=== PATIENT | male | born 1945 | race African-American/Black ===

== ENCOUNTER 2019-02-18 22:40 | Emergency (ER) | payer OTHER, MEDICARE ==
[2019-02-18] MEDS ORDERED: MORPHINE SULFATE IR 15 MG TABLET PO ONE (23:58)
[2019-02-18] MEDS ORDERED: ACETAMINOPHEN 325 MG TABLET PO ONE (23:58)
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
[2019-02-19 02:16] VITALS: BP 128/76
== END 2019-02-19 02:16 | disposition home or self-care (01) ==
LOC: ER 22:40
DX: S09.90XA Unspecified injury of head, initial encounter (principal); M54.5 Low back pain; M54.6 Pain in thoracic spine; V89.2XXA Person injured in unspecified motor-vehicle accident, traffic, initial encounter
CPT/HCPCS: 70450; 72125; 99284

== ENCOUNTER → 2019-06-13 | Outpatient (CLI) | payer MEDICARE ==
--- NOTE | 2019-06-13 13:02 | RADIOLOGY REPORT (SQ) ---
EXAM DESCRIPTION: KNEE LEFT 4 VIEWS COMPLETED DATE/TIME: 06/13/2019 11:28 am REASON FOR STUDY: UNILATERAL PRIMARY OSTEOARTHRITIS, LEFT KNEE M17.12 UNILATERAL PRIMARY OSTEOARTHR ITIS, LEFT KNEE COMPARISON: None. EXAM PARAMETERS: NUMBER OF VIEWS: Four views. TECHNIQUE: AP, lateral and oblique radiographic images acquired of the left knee. LIMITATIONS: None. FINDINGS: MINERALIZATION: Normal. BONES: No acute fracture or dislocation. No worrisome bone lesions. JOINTS: No effusion. SOFT TISSUES: No significant soft tissue swelling. Moderate meniscal calcification- chondrocalcinosi s. No radiopaque foreign body. OTHER: No other significant finding. IMPRESSION: NO FRACTURE. TECHNICAL DOCUMENTATION: JOB ID: [id number] [place]-72 2010 [employer]- All Rights Reserved Reading location - IP/workstation name: [employer]
== END ==
LOC: OD 11:16
PROVIDERS: ATTEND Internal Medicine
DX: M17.12 Unilateral primary osteoarthritis, left knee (principal)

== ENCOUNTER 2020-07-23 02:29 | Inpatient (IN) | payer MEDICARE, OTHER ==
[2020-07-23] MEDS ORDERED: NORMAL SALINE IV ONE (02:45)
[2020-07-23 03:12] LABS: ALBUMIN 4.2 g/dL (3.5-5.0); ALKALINE PHOSPHATASE 43 U/L (38-126); ASPARTATE AMINO TRANSFERASE 60 U/L (17-59); BILIRUBIN,DIRECT 0.5 mg/dL (0.0-0.4); BILIRUBIN,TOTAL 1.1 mg/dL (0.2-1.3); BLOOD UREA NITROGEN 54 mg/dL (7-20); CALCIUM 9.2 mg/dL (8.4-10.2); GLUCOSE 174 mg/dL (75-110); POTASSIUM 4.1 mmol/L (3.6-5.0); TOTAL PROTEIN 7.7 g/dL (6.3-8.2)
[2020-07-23 03:17] LABS: CARBON DIOXIDE 19 mmol/L (22-30); CHLORIDE 102 mmol/L (98-107)
--- NOTE | 2020-07-23 03:18 | RADIOLOGY REPORT (SQ) ---
CHEST X-RAY 1 VIEW on 07/23/2020 at 2:50 AM CLINICAL INDICATION: Weakness COMPARISON: None FINDINGS: The lungs are clear. Cardiac, hilar and mediastinal contours are within normal limits. Pulmonary vascularity is within normal limits. Degenerative changes are noted in the spine. IMPRESSION: No acute disease.
[2020-07-23 03:25] LABS: ANION GAP 20 (5-19)
[2020-07-23 03:27] LABS: HEMATOCRIT 50.2 % (37.9-51.0); HEMOGLOBIN 17.1 g/dL (13.5-17.0); MEAN CORPUSCULAR HEMOGLOBIN 32.1 pg (27.0-33.4); MEAN CORPUSCULAR HGB CONC 34.1 g/dL (32.0-36.0); MEAN CORPUSCULAR VOLUME 94 fl (80-97); PLATELET COUNT 149 10^3/uL (150-450); RED BLOOD COUNT 5.34 10^6/uL (4.35-5.55); RED CELL DISTRIBUTION WIDTH 13.5 % (11.5-14.0); WHITE BLOOD COUNT 11.4 10^3/uL (4.0-10.5)
[2020-07-23] MEDS ORDERED: PIPERACILLIN/TAZOBACTAM 4.5 GM VIAL IV ONE (03:32)
--- NOTE | 2020-07-23 03:39 | ER Document Report ---
ED General - General Chief Complaint: General Weakness Stated Complaint: SEPTIC Time Seen by Provider: 07/23/20 02:56 Primary Care Provider: MARTHA BARFIELD MD [Primary Care Provider] - Follow up as needed TRAVEL OUTSIDE OF THE [place] IN LAST 30 DAYS: No - HPI Context: This is a 75-year-old male with history of hypertension who presents via EMS to the ED for evaluation of weakness and shortness of breath. Patient states that he has had generalized weakness and some shortness of breath for approximately 1 week. Patient denies chest pain or abdominal pain. Patient called EMS tonight because he was feeling worse. Upon EMS arrival, patient's blood pressure was found to be 80/60 with a pulse of 120 respirations of 16 and a blood glucose level of 256 the patient had a 18-gauge peripheral IV placed in his right forearm and was given a liter of lactated Ringer's in route EMS lactic acid level was read as 5.6. Patient states he used to be a smoker but has not smoked in many years. Patient denies history of Covid infection, loss of sense of taste or smell, known contact with Covid positive persons, known contact with persons under investigation for Covid. Patient denies nausea, and vomiting, diarrhea, headache, slurred speech. Patient does admit that he has felt so weak he has had difficulty standing up and ambulating. Patient denies actual pain but states the weakness and shortness of breath he is having is severe. Patient is able to say it is "very bad" but is not able to quantify it on a scale of 0- 5. Patient states exertion makes his symptoms worse and denies any alleviating factors. Associated symptoms: Other - See HPI Exacerbated by: Other - See HPI Relieved by: Other - See HPI - Related Data Allergies/Adverse Reactions: No Known Allergies Allergy (Unverified 02/19/19 00:42) Past Medical History - General Information source: Patient - Social History Smoking Status: Former Smoker Family History: Reviewed & Not Pertinent - Past Medical History Cardiac Medical History: Reports: Hx Hypertension Renal/ Medical History: Denies: Hx Peritoneal Dialysis Review of Systems - Review of Systems Constitutional: Weakness EENT: No symptoms reported Cardiovascular: No symptoms reported Respiratory: Short of breath Gastrointestinal: No symptoms reported Genitourinary: No symptoms reported Male Genitourinary: No symptoms reported Musculoskeletal: No symptoms reported Skin: No symptoms reported Hematologic/Lymphatic: No symptoms reported Neurological/Psychological: No symptoms reported -: Yes All other systems reviewed and negative Physical Exam - Vital signs Vitals: Resp BP Pulse Ox 26 H 126/98 H 94 07/23/20 02:33 07/23/20 02:33 07/23/20 02:33 - Notes Notes: CONSTITUTIONAL [Vital signs reviewed, Patient appears comfortable, Alert and oriented X 3, Normal stature.] HEAD [Atraumatic, Normocephalic.] EYES [Eyes are normal to inspection, No discharge from eyes, Extraocular muscles intact, Sclera are normal, Conjunctiva are normal.] NECK [Normal ROM, No jugular venous distention, No meningeal signs, no carotid bruit.] RESPIRATORY CHEST [Chest is nontender, Breath sounds normal, No respiratory distress.] CARDIOVASCULAR [Tachycardia, No murmurs, Normal S1 S2, No rub, No gallop.] ABDOMEN [Abdomen is nontender, No pulsatile masses, No other masses, Bowel sounds normal, No distension, No peritoneal signs, No hernias.] BACK [There is no CVA Tenderness, There is no tenderness to palpation, Normal inspection.] UPPER EXTREMITY [Inspection normal, No cyanosis, No clubbing, No edema, 2+ radial pulses.] LOWER EXTREMITY [Inspection normal, No cyanosis, No clubbing, No edema, No calf tenderness, 2+ femoral pulses.] NEURO [No focal motor deficits, No focal sensory deficits, Speech normal.] SKIN [Skin is warm, Skin is dry, Skin is normal color.] PSYCHIATRIC [Normal affect. ] Course - Vital Signs Vital signs: Temp Pulse Resp BP Pulse Ox 99.1 F 100 21 H 108/83 97 07/23/20 02:57 07/23/20 02:45 07/23/20 05:01 07/23/20 05:01 07/23/20 05:01 - Laboratory Result Diagrams: 07/23/20 02:34 07/23/20 02:34 Laboratory results interpreted by me: 07/23/20 07/23/20 07/23/20 02:34 02:34 02:34 WBC 11.4 H Hgb 17.1 H Plt Count 149 L Seg Neuts % (Manual) 86 H Band Neutrophils % 1 L Lymphocytes % (Manual) 1 L Abs Neuts (Manual) 9.9 H Abs Lymphs (Manual) 0.1 L Carbon Dioxide 19 L Anion Gap 20 H BUN 54 H Creatinine 3.83 H Est GFR ( Amer) 19 L Est GFR (MDRD) Non-Af 15 L Glucose 174 H Lactic Acid 5.7 H Magnesium Direct Bilirubin 0.5 H AST 60 H Urine Protein Urine Blood 07/23/20 07/23/20 02:34 03:36 WBC Hgb Plt Count Seg Neuts % (Manual) Band Neutrophils % Lymphocytes % (Manual) Abs Neuts (Manual) Abs Lymphs (Manual) Carbon Dioxide Anion Gap BUN Creatinine Est GFR ( Amer) Est GFR (MDRD) Non-Af Glucose Lactic Acid Magnesium 2.5 H Direct Bilirubin AST Urine Protein 100 H Urine Blood LARGE H - EKG Interpretation by Me Additional EKG results interpreted by me: 07/23/20 03:42 EKG obtained on 07/23/2020 at 0242 hrs. was interpreted by this MD. findings: Patient has a irregularly irregular tachycardia with a rate of 112, variable block, normal axis, IA interval cannot be determined, PVCs are present, QRS complex appears narrow, QTC is 481, there are no obvious patterns of ST segment elevation or depression present to suggest acute myocardial ischemia or infarction. There is no prior EKG currently available for comparison. Impression: Atrial flutter with NSSTS - Consults Dr. Morse Time consulted: 05:00 - Dr. Morse agreed to admit pt Reason for consultation: 07/23/20 05:09 new onset a flutter, hypotension, dyspnea, renal insufficiency, lactic acidosis Consulted provider: will see as inpatient Critical Care Note - Critical Care Note Total time excluding time spent on procedures (mins): 120 - new onset a flutter, hypotension, dyspnea, renal insufficiency, lactic acidosis Discharge - Discharge Clinical Impression: New onset atrial flutter, Lactic acidosis, Renal insufficiency Condition: Stable Disposition: ADMITTED INPATIENT Admitting Provider: Lito (Hospitalist) Unit Admitted: IMCU Referrals: MARTHA BARFIELD MD [Primary Care Provider] - Follow up as needed
[2020-07-23 03:47] LABS: ABSOLUTE LYMPHOCYTES# (MANUAL) 0.1 10^3/uL (0.5-4.7); ABSOLUTE MONOCYTES # (MANUAL) 1.4 10^3/uL (0.1-1.4); BAND NEUTROPHILS % (MANUAL) 1 % (3-5); BASOPHILS % (MANUAL) 0 % (0-2); EOSINOPHILS % (MANUAL) 0 % (0-6); LYMPHOCYTES % (MANUAL) 1 % (13-45); MONOCYTES % (MANUAL) 12 % (3-13); SEGMENTED NEUTROPHILS % (MAN) 86 % (42-78); TOTAL CELLS COUNTED 100
[2020-07-23 03:49] LABS: PLATELET COMMENT ADEQUATE; POIKILOCYTOSIS SLIGHT; TEAR DROP CELLS SLIGHT
[2020-07-23 03:50] LABS: INTERNATIONAL RATION (INR) 1.05; PROTHROMBIN TIME 13.9 SEC (11.4-15.4)
[2020-07-23 03:55] LABS: APPEARANCE,URINE CLOUDY; BILIRUBIN,URINE NEGATIVE (NEGATIVE); COLOR,URINE AMBER; GLUCOSE, URINE NEGATIVE (NEGATIVE); KETONES,URINE NEGATIVE (NEGATIVE); LEUKOCYTE ESTERASE,URINE NEGATIVE (NEGATIVE); NITRITE,URINE NEGATIVE (NEGATIVE); PROTEIN,URINE 100 mg/dL (NEGATIVE); UROBILINOGEN,URINE NEGATIVE mg/dL (<2.0)
[2020-07-23 04:09] LABS: VENOUS BLOOD BASE EXCESS -3.8 mmol/L; VENOUS BLOOD HCO3 21.8 mmol/L (20-32); VENOUS BLOOD PCO2 41.8 mmHg (35-63); VENOUS BLOOD PH 7.34 (7.30-7.42)
[2020-07-23] MEDS ORDERED: HEPARIN SOD (PORCINE) 1,000 UNIT/ML 10 ML VIAL IV ONE (05:05)
[2020-07-23] MEDS ORDERED: HEPARIN SODIUM,PORCINE/D5W 25,000 UNIT/250 ML RTUINJ IV PRN (05:05)
[2020-07-23] MEDS ORDERED: DEXAMETHASONE SOD PHOS INJ 10 MG/1 ML VIAL IV ONE (05:05)
[2020-07-23] MEDS ORDERED: RINGERS SOLUTION,LACTATED 1,000 ML IV PRN (05:32)
[2020-07-23] MEDS ORDERED: MAGNESIUM HYDROXIDE SUSP 30 ML UDCUP PO PRN (05:32)
[2020-07-23] MEDS ORDERED: LEVALBUTEROL HCL NEB 0.63 MG/3 ML AMPUL NEB PRN (05:32)
[2020-07-23] MEDS ORDERED: MAG HYDROX/AL HYDROX/SIMETH SUSP 30 ML UDCUP PO PRN (05:32)
[2020-07-23] MEDS ORDERED: PROMETHAZINE HCL INJ 25 MG/1 ML VIAL IV PRN ×2 (05:32→14:30)
[2020-07-23 05:33] LABS: FREE T3 2.85 pg/mL (2.77-5.27); FREE T4 (FREE THYROXINE) 1.25 ng/dL (0.78-2.19)
[2020-07-23] MEDS ORDERED: GLUCAGON,HUMAN RECOMB 1 MG INJ IM PRN (05:39)
[2020-07-23] MEDS ORDERED: DEXTROSE 40% GEL 15 GM TUBE PO PRN ×2 (05:39)
[2020-07-23] MEDS ORDERED: DEXTROSE 50%-WATER 25 GM/50 ML DISP.SYRIN IV PRN ×2 (05:39)
--- NOTE | 2020-07-23 05:48 | PDOC H&P ---
History of Present Illness Admission Date/PCP: 07/23/2020 05:04 MARTHA BARFIELD Patient complains of: Dyspnea History of Present Illness: TAMIA HUI is a 75 year old male presented emergency room with a 1-week history of dyspnea. 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 He admits progressively worsening dyspnea over the last week accompanied by progressively worsening generalized weakness and worsened by exertion. He denies other associated or accompanying signs and symptoms. He denies prior similar episodes. He has not identified any additional aggravating or ameliorating factors for his dyspnea by the evening of 07/22/2020 his dyspnea had become severe and he called EMS to bring him to the hospital. In the emergency room he was found to be tachypneic, tachycardic, hypoxic on room air and was found to have a mild leukocytosis with a lactic acid of 5.7. An EKG showed atrial fibrillation/flutter and a chest x-ray is negative for acute disease. His creatinine was noted to be 3.83 precluding a CTA evaluation of the chest. He was empirically started on IV antibiotic therapy with azithromycin and Rocephin in the emergency room. He was given Decadron 10 mg IV x1 in the emergency room. He was continued on nasal cannula supplemental oxygen 2 L/min and was subsequently admitted to the hospital for further evaluation and treatment. COVID-19 testing was performed. Blood cultures are pending. Past Medical History Cardiac Medical History: Reports: Hypertension Denies: Atrial Fibrillation, Coronary Artery Disease, Myocardial Infarction, Hyperlipidema Pulmonary Medical History: Denies: Asthma, Chronic Obstructive Pulmonary Disease (COPD) EENT Medical History: Denies: Cataracts, Ears - Hearing aids Neurological Medical History: Denies: Hemorrhagic CVA, Ischemic CVA, Seizures Endocrine Medical History: Reports: Obesity Denies: Diabetes Mellitus Type 1, Diabetes Mellitus Type 2, Hyperthyroidism, Hypothyroidism Renal/ Medical History: Reports: Chronic Kidney Disease Denies: Nephrolithiasis Malignancy Medical History: Reports: None GI Medical History: Denies: Cirrhosis, Hepatitis, Peptic Ulcer Disease Musculoskeltal Medical History: Reports: Arthritis Denies: Gout Skin Medical History: Denies: Eczema, Psoriasis Psychiatric Medical History: Denies: Alcohol Dependency, Substance Abuse, Tobacco Dependency Traumatic Medical History: Reports: None Hematology: Denies: Anemia, Bleeding Tendencies Infectious Medical History: Reports: None Past Surgical History Past Surgical History: Reports: None Social History Information Source: Patient Lives with: Family Smoking Status: Former Smoker Electronic Cigarette use?: No Frequency of Alcohol Use: None Hx Recreational Drug Use: No Drugs: None Hx Prescription Drug Abuse: No - Advance Directive Resuscitation Status: Full Code Surrogate healthcare decision maker:: Patric Hui Family History Family History: denies: CAD, DM, Malignancy Parental Family History Reviewed: Yes Children Family History Reviewed: No Sibling(s) Family History Reviewed.: Yes Medication/Allergy Allergies/Adverse Reactions: No Known Allergies Allergy (Unverified 02/19/19 00:42) Review of Systems Constitutional: PRESENT: as per HPI, weakness. ABSENT: chills, fever(s) Eyes: ABSENT: visual disturbances, other - Eye pain Ears: ABSENT: hearing changes, other - Ear pain Nose, Mouth, and Throat: ABSENT: headache(s), sore throat Cardiovascular: PRESENT: as per HPI, dyspnea on exertion. ABSENT: chest pain, palpitations Respiratory: PRESENT: as per HPI, dyspnea. ABSENT: cough Gastrointestinal: ABSENT: abdominal pain, diarrhea, nausea, vomiting Genitourinary: ABSENT: dysuria, hematuria Musculoskeletal: ABSENT: back pain, joint swelling Integumentary: ABSENT: pruritus, rash Neurological: ABSENT: focal weakness, memory loss Psychiatric: ABSENT: anxiety, depression Endocrine: ABSENT: cold intolerance, heat intolerance Hematologic/Lymphatic: ABSENT: easy bleeding, easy bruising Allergic/Immunologic: ABSENT: seasonal rhinorrhea Physical Exam Vital Signs: Temp Pulse Resp BP Pulse Ox 99.1 F 100 21 H 121/69 96 07/23/20 02:57 07/23/20 02:45 07/23/20 04:31 07/23/20 04:31 07/23/20 04:31 Intake & Output 07/21/20 07/22/20 07/23/20 23:59 23:59 23:59 Weight 107.7 kg General appearance: PRESENT: no acute distress, cooperative, obese, other - On supplemental oxygen at time of my evaluation Head exam: PRESENT: atraumatic, normocephalic Eye exam: PRESENT: conjunctiva pink. ABSENT: conjunctival injection, scleral icterus Ear exam: PRESENT: normal external ear exam. ABSENT: bleeding, drainage Mouth exam: PRESENT: dry mucosa, neck supple Neck exam: ABSENT: thyromegaly, tracheal deviation Respiratory exam: PRESENT: symmetrical, tachypnea. ABSENT: rales, rhonchi Cardiovascular exam: PRESENT: irregular rhythm - Irregularly irregular rate and rhythm, tachycardia. ABSENT: clicks, gallop, rubs Pulses: PRESENT: normal radial pulses, normal dorsalis pedis pul Vascular exam: ABSENT: normal capillary refill - Capillary refill delayed greater than 3 seconds, pallor GI/Abdominal exam: PRESENT: normal bowel sounds, soft. ABSENT: tenderness Rectal exam: PRESENT: deferred Extremities exam: ABSENT: joint swelling, pedal edema Neurological exam: PRESENT: alert, oriented to person, oriented to place, oriented to time, CN II-XII grossly intact Psychiatric exam: PRESENT: appropriate affect, normal mood Skin exam: PRESENT: dry, intact, warm. ABSENT: jaundice, rash, urticaria Results Laboratory Results: 07/23/20 02:34 07/23/20 02:34 07/23/20 07/23/20 07/23/20 02:34 02:34 02:34 WBC 11.4 H RBC 5.34 Hgb 17.1 H Hct 50.2 MCV 94 MCH 32.1 MCHC 34.1 RDW 13.5 Plt Count 149 L Seg Neutrophils % Not Reportable VBG pH Cancelled VBG pCO2 Cancelled VBG HCO3 Cancelled VBG Base Excess Cancelled Sodium 140.5 Potassium 4.1 Chloride 102 Carbon Dioxide 19 L Anion Gap 20 H BUN 54 H Creatinine 3.83 H Est GFR ( Amer) 19 L Glucose 174 H Lactic Acid Calcium 9.2 Magnesium Total Bilirubin 1.1 AST 60 H Alkaline Phosphatase 43 Total Protein 7.7 Albumin 4.2 TSH Urine Color Urine Appearance Urine pH Ur Specific [place] Urine Protein Urine Glucose (UA) Urine Ketones Urine Blood Urine Nitrite Ur Leukocyte Esterase Urine WBC (Auto) Urine RBC (Auto) 07/23/20 07/23/20 07/23/20 02:34 02:34 02:34 WBC RBC Hgb Hct MCV MCH MCHC RDW Plt Count Seg Neutrophils % VBG pH VBG pCO2 VBG HCO3 VBG Base Excess Sodium Potassium Chloride Carbon Dioxide Anion Gap BUN Creatinine Est GFR ( Amer) Glucose Lactic Acid 5.7 H Calcium Magnesium 2.5 H Total Bilirubin AST Alkaline Phosphatase Total Protein Albumin TSH 1.00 Urine Color Urine Appearance Urine pH Ur Specific [place] Urine Protein Urine Glucose (UA) Urine Ketones Urine Blood Urine Nitrite Ur Leukocyte Esterase Urine WBC (Auto) Urine RBC (Auto) 07/23/20 07/23/20 03:36 03:51 WBC RBC Hgb Hct MCV MCH MCHC RDW Plt Count Seg Neutrophils % VBG pH 7.34 VBG pCO2 41.8 VBG HCO3 21.8 VBG Base Excess -3.8 Sodium Potassium Chloride Carbon Dioxide Anion Gap BUN Creatinine Est GFR ( Amer) Glucose Lactic Acid Calcium Magnesium Total Bilirubin AST Alkaline Phosphatase Total Protein Albumin TSH Urine Color SILVIA Urine Appearance CLOUDY Urine pH 5.0 Ur Specific [place] 1.020 Urine Protein 100 H Urine Glucose (UA) NEGATIVE Urine Ketones NEGATIVE Urine Blood LARGE H Urine Nitrite NEGATIVE Ur Leukocyte Esterase NEGATIVE Urine WBC (Auto) 9 Urine RBC (Auto) 77 07/23/20 02:34 Troponin I 0.047 Impressions: Chest X-Ray 07/23/20 02:46 IMPRESSION: No acute disease. Assessment and Plan - Diagnosis (1) Acute kidney injury superimposed on chronic kidney disease Is this a current diagnosis for this admission?: Yes (2) Atrial fibrillation with rapid ventricular response Is this a current diagnosis for this admission?: Yes (3) Person under investigation for COVID-19 Is this a current diagnosis for this admission?: Yes (4) Acute respiratory failure with hypoxia Is this a current diagnosis for this admission?: Yes (5) SIRS (systemic inflammatory response syndrome) Is this a current diagnosis for this admission?: Yes (6) Lactic acidosis Is this a current diagnosis for this admission?: Yes (7) Leukocytosis Qualifiers: Leukocytosis type: unspecified Qualified Code(s): D72.829 - Elevated white blood cell count, unspecified Is this a current diagnosis for this admission?: Yes (8) Hyperglycemia Is this a current diagnosis for this admission?: Yes - Plan Summary Summary: Patient will be admitted to the [facility] where he will receive routine supportive and symptomatic cares. He will receive IV fluids utilizing Ringer's lactate at 250 mL/h initially. He will be continued on IV antibiotic therapy with Rocephin 1 g IV daily and azithromycin 500 mg IV daily. He will be continued on Decadron 6 mg IV daily. He will be treated with a diltiazem bolus and infusion to control his atrial fibrillation rate. He will be continued on supplemental oxygen via nasal cannula as needed to maintain an adequate oxygen saturation. Serial CBCs and metabolic profiles will be obtained to assess efficacy of the rapy. Serial lactic acid levels will be obtained. COVID-19 testing and blood cultures are pending. Hemoglobin A1c and a thyroid profile will be obtained. A cardiology consultation will be obtained and a nephrology consultation will be obtained when nephrology services are again available. Patient will be placed on a cardiac, prerenal and diabetic restricted diet. Before meals and at bedtime Accu-Cheks will be performed with sliding scale insulin for hyperglycemia and a hypoglycemic protocol in place. Additional laboratory and/or radiographic evaluations will be obtained as needed. Patient will use morphine sulfate 2 to 4 mg IV every 2 hours as needed for pain and Ativan 1 mg IV every 4 hours as needed for anxiety or restlessness. - Time Time Spent with patient: Less than 15 minutes Medications reviewed and adjusted accordingly: Yes Anticipated Discharge Disposition: Home with Home Health Anticipated Discharge Timeframe: Undetermined - Inpatient Certification Based on my medical assessment, after consideration of the patient's comorbidi ties, presenting symptoms, or acuity I expect that the services needed warrant INPATIENT care.: Yes I certify that my determination is in accordance with my understanding of Vignesh reece's requirements for reasonable and necessary INPATIENT services [42 CFR 412.3e].: Yes Medical Necessity: Need For IV Fluids, Need For Continuous Telemetry Monitoring, Need for IV Antibiotics, Risk of Complication if Not Cared For in Hospital
[2020-07-23] MEDS: PANTOPRAZOLE SODIUM 40 MG TABLET.DR PO SCH (06:14)
--- NOTE | 2020-07-23 07:33 | EKG REPORT ---
SEVERITY:- ABNORMAL ECG - ATRIAL FIBRILLATION, V-RATE 68-146 VENTRICULAR PREMATURE COMPLEX INFERIOR INFARCT, AGE INDETERMINATE BORDERLINE PROLONGED QT INTERVAL : Confirmed by: Sonya Souza 23-Jul-2020 07:32:43
[2020-07-23] MEDS ORDERED: CEFTRIAXONE 1 GM/D5W RTU 1 GM/50 ML RTUPB IV SCH (08:00)
[2020-07-23] MEDS ORDERED: HEPARIN SOD (PORCINE) 1,000 UNIT/ML 10 ML VIAL IV PRN ×2 (08:06)
[2020-07-23 08:59] LABS: INTERNATIONAL RATION (INR) 1.21; PROTHROMBIN TIME 15.5 SEC (11.4-15.4)
[2020-07-23 09:01] LABS: ABSOLUTE LYMPHOCYTES (AUTO) 0.4 10^3/uL (0.5-4.7); ABSOLUTE MONOCYTES (AUTO) 0.4 10^3/uL (0.1-1.4); ABSOLUTE NEUT (AUTO) 7.7 10^3/uL (1.7-8.2); BASOPHILS % (AUTO) 0.4 % (0-2); HEMATOCRIT 44.7 % (37.9-51.0); HEMOGLOBIN 15.4 g/dL (13.5-17.0); LYMPHOCYTES % (AUTO) 5.3 % (13-45); MEAN CORPUSCULAR HEMOGLOBIN 31.9 pg (27.0-33.4); MEAN CORPUSCULAR HGB CONC 34.4 g/dL (32.0-36.0); MEAN CORPUSCULAR VOLUME 93 fl (80-97); MONOCYTES % (AUTO) 4.3 % (3-13); PARTIAL THROMBOPLASTIN TIME 81.9 SEC (23.5-35.8); PLATELET COUNT 143 10^3/uL (150-450); RED BLOOD COUNT 4.81 10^6/uL (4.35-5.55); RED CELL DISTRIBUTION WIDTH 13.2 % (11.5-14.0); TOTAL CELLS COUNTED % (AUTO) 100 %; WHITE BLOOD COUNT 8.6 10^3/uL (4.0-10.5)
[2020-07-23 09:31] LABS: CREATINE KINASE MB 16.8 ng/mL (<4.55)
[2020-07-23 09:36] LABS: D-DIMER 4.39 ug/mL (0.00-0.50)
[2020-07-23 09:46] LABS: TROPONIN I 0.073 ng/mL
[2020-07-23] MEDS: HEPARIN SODIUM,PORCINE/D5W 25,000 UNIT/250 ML RTUINJ IV PRN (10:57)
[2020-07-23] MEDS: ASPIRIN 81 MG TABLET, ENT COATED PO SCH (11:06)
[2020-07-23] MEDS: CHOLECALCIFEROL (D3) 1,000 UNIT (25 MCG) TABLET PO SCH (11:06)
[2020-07-23] MEDS: ZINC SULFATE 220 MG CAPSULE PO SCH (11:06)
[2020-07-23] MEDS: ASCORBIC ACID 500 MG TABLET PO SCH ×2 (11:06→17:24)
[2020-07-23] MEDS: DOCUSATE SODIUM 100 MG CAPSULE PO SCH ×2 (11:46→17:16)
[2020-07-23 15:21] LABS: CREATINE KINASE MB 13.9 ng/mL (<4.55); TROPONIN I 0.046 ng/mL
[2020-07-23] MEDS ORDERED: HYDROCODONE/ACETAMINOPHEN 5-325 MG TABLET PO PRN (17:27)
[2020-07-23] MEDS ORDERED: (PENDING PHARMACY ID) (Atenolol [Tenormin] 25 MG) PO SCH (18:00)
--- NOTE | 2020-07-23 20:50 | PDOC PROGRESS REPORT ---
Subjective Progress Note for:: 07/23/20 Subjective:: Patient was seen and examined at bedside. He is still on 2 L of nasal cannula saturating 95%. He reports an improvement as far as breathing status is concerned. He he was still very confused, unable to provide accurate date or even the correct year. Could not name the current [place] president. Reason For Visit: ATRIAL FIBRILLATION WITH RAPID VENTRICULAR RESPONS Physical Exam Vital Signs: Temp Pulse Resp BP Pulse Ox 97.6 F 89 18 122/70 99 07/23/20 19:28 07/23/20 19:28 07/23/20 19:28 07/23/20 19:28 07/23/20 19:28 Intake & Output 07/22/20 07/23/20 07/24/20 06:59 06:59 06:59 Intake Total 12 655 Output Total 0 200 Balance 12 455 Weight 103.6 kg General appearance: PRESENT: cooperative, other - moderate distress Head exam: PRESENT: atraumatic, normocephalic Eye exam: PRESENT: EOMI, PERRLA Mouth exam: PRESENT: moist Neck exam: PRESENT: full ROM Respiratory exam: PRESENT: crackles, rales, symmetrical. ABSENT: wheezes Cardiovascular exam: PRESENT: irregular rhythm, +S1, +S2 GI/Abdominal exam: PRESENT: normal bowel sounds, soft. ABSENT: rebound, tenderness Extremities exam: PRESENT: +2 edema. ABSENT: joint swelling Musculoskeletal exam: PRESENT: full ROM Neurological exam: PRESENT: altered - Confused about person and date and time Psychiatric exam: PRESENT: flat affect Skin exam: PRESENT: normal color Results Laboratory Results: 07/23/20 08:37 07/23/20 02:34 07/23/20 07/23/20 07/23/20 02:34 02:34 02:34 WBC 11.4 H RBC 5.34 Hgb 17.1 H Hct 50.2 MCV 94 MCH 32.1 MCHC 34.1 RDW 13.5 Plt Count 149 L Seg Neutrophils % Not Reportable VBG pH Cancelled VBG pCO2 Cancelled VBG HCO3 Cancelled VBG Base Excess Cancelled Sodium 140.5 Potassium 4.1 Chloride 102 Carbon Dioxide 19 L Anion Gap 20 H BUN 54 H Creatinine 3.83 H Est GFR ( Amer) 19 L Glucose 174 H Lactic Acid Calcium 9.2 Magnesium Ferritin Total Bilirubin 1.1 AST 60 H Alkaline Phosphatase 43 C-Reactive Protein Total Protein 7.7 Albumin 4.2 TSH Free T4 Free T3 pg/mL Urine Color Urine Appearance Urine pH Ur Specific [place] Urine Protein Urine Glucose (UA) Urine Ketones Urine Blood Urine Nitrite Ur Leukocyte Esterase Urine WBC (Auto) Urine RBC (Auto) 07/23/20 07/23/20 07/23/20 02:34 02:34 02:34 WBC RBC Hgb Hct MCV MCH MCHC RDW Plt Count Seg Neutrophils % VBG pH VBG pCO2 VBG HCO3 VBG Base Excess Sodium Potassium Chloride Carbon Dioxide Anion Gap BUN Creatinine Est GFR ( Amer) Glucose Lactic Acid 5.7 H Calcium Magnesium 2.5 H Ferritin Total Bilirubin AST Alkaline Phosphatase C-Reactive Protein Total Protein Albumin TSH 1.00 Free T4 1.25 Free T3 pg/mL 2.85 Urine Color Urine Appearance Urine pH Ur Specific [place] Urine Protein Urine Glucose (UA) Urine Ketones Urine Blood Urine Nitrite Ur Leukocyte Esterase Urine WBC (Auto) Urine RBC (Auto) 07/23/20 07/23/20 07/23/20 03:36 03:51 08:37 WBC RBC Hgb Hct MCV MCH MCHC RDW Plt Count Seg Neutrophils % VBG pH 7.34 VBG pCO2 41.8 VBG HCO3 21.8 VBG Base Excess -3.8 Sodium Potassium Chloride Carbon Dioxide Anion Gap BUN Creatinine Est GFR ( Amer) Glucose Lactic Acid 1.6 Calcium Magnesium Ferritin Total Bilirubin AST Alkaline Phosphatase C-Reactive Protein Total Protein Albumin TSH Free T4 Free T3 pg/mL Urine Color SILVIA Urine Appearance CLOUDY Urine pH 5.0 Ur Specific [place] 1.020 Urine Protein 100 H Urine Glucose (UA) NEGATIVE Urine Ketones NEGATIVE Urine Blood LARGE H Urine Nitrite NEGATIVE Ur Leukocyte Esterase NEGATIVE Urine WBC (Auto) 9 Urine RBC (Auto) 77 07/23/20 07/23/20 07/23/20 08:37 08:37 08:37 WBC 8.6 RBC 4.81 Hgb 15.4 Hct 44.7 MCV 93 MCH 31.9 MCHC 34.4 RDW 13.2 Plt Count 143 L Seg Neutrophils % 90.0 H VBG pH VBG pCO2 VBG HCO3 VBG Base Excess Sodium Potassium Chloride Carbon Dioxide Anion Gap BUN Creatinine Est GFR ( Amer) Glucose Lactic Acid Calcium Magnesium Ferritin 1300.00 H Total Bilirubin AST Alkaline Phosphatase C-Reactive Protein 61.7 H Total Protein Albumin TSH Free T4 Free T3 pg/mL Urine Color Urine Appearance Urine pH Ur Specific [place] Urine Protein Urine Glucose (UA) Urine Ketones Urine Blood Urine Nitrite Ur Leukocyte Esterase Urine WBC (Auto) Urine RBC (Auto) 07/23/20 07/23/20 12:20 16:45 WBC RBC Hgb Hct MCV MCH MCHC RDW Plt Count Seg Neutrophils % VBG pH VBG pCO2 VBG HCO3 VBG Base Excess Sodium Potassium Chloride Carbon Dioxide Anion Gap BUN Creatinine Est GFR ( Amer) Glucose Lactic Acid 1.5 1.6 Calcium Magnesium Ferritin Total Bilirubin AST Alkaline Phosphatase C-Reactive Protein Total Protein Albumin TSH Free T4 Free T3 pg/mL Urine Color Urine Appearance Urine pH Ur Specific [place] Urine Protein Urine Glucose (UA) Urine Ketones Urine Blood Urine Nitrite Ur Leukocyte Esterase Urine WBC (Auto) Urine RBC (Auto) 07/23/20 07/23/20 07/23/20 02:34 08:37 08:37 Creatine Kinase 2733 H CK-MB (CK-2) 16.80 H Troponin I 0.047 0.073 07/23/20 07/23/20 14:40 14:40 Creatine Kinase 2719 H CK-MB (CK-2) 13.90 H Troponin I 0.046 Impressions: Chest X-Ray 07/23/20 02:46 IMPRESSION: No acute disease. Assessment and Plan - Diagnosis (1) Acute respiratory failure with hypoxia Is this a current diagnosis for this admission?: Yes Plan: -Came in due to dyspnea 1 week duration -Lowest O2 sat 92% improved 2 L of nasal cannula - ddx CAP, COVID pneumonia -Chest x-ray normal -CT chest without contrast pending - VQ scan pending - continue O2 support - patient started on Heparin drip for possible PE and also for New onset a.fib - also started on abx for presumed pneumonia (2) Acute kidney injury superimposed on chronic kidney disease Is this a current diagnosis for this admission?: Yes Plan: - Crea 3.8 unknown baseline -Urine sodium, urine creatinine, urine ultrasound ordered for work-up of CHETAN -Continue IV hydration -denise placed strict I&O (3) Suspected COVID-19 virus infection Is this a current diagnosis for this admission?: Yes Plan: -Came in due to dyspnea 1 week duration and cough. No known Covid exposure -X-ray clear -Covid pending -CT chest pending -CRP elevated -Ferritin elevated -Patient on ceftriaxone and azithromycin -Dexamethasone 6 mg IV -Treatment C, vitamin D, zinc -Convalescent plasma and/or remdesivir once Covid is confirmed (4) Atrial fibrillation with rapid ventricular response Is this a current diagnosis for this admission?: Yes Plan: -New onset no prior history -EKG confirms A. fib -Chads vas score 3 points for age and hypertension -Started on heparin drip due to CHETAN -Echo TSH pending -Cardio following (5) Lactic acidosis Is this a current diagnosis for this admission?: Yes Plan: -Resolved currently 1.6 (6) Leukocytosis Qualifiers: Leukocytosis type: unspecified Qualified Code(s): D72.829 - Elevated white blood cell count, unspecified Is this a current diagnosis for this admission?: Yes Plan: WBC 11.4-8.6 improving Continue to monitor (7) Acute metabolic encephalopathy Is this a current diagnosis for this admission?: Yes Plan: -Likely secondary to low blood pressure and hypoxia Consider CT head if it does not improve (8) Elevated troponin Is this a current diagnosis for this admission?: Yes Plan: -Troponin 0.0 47 down to 0.0 37 -EKG atrial fibrillation -Likely type II demand ischemia -Cardio following - Time Time Spent with patient: 25-34 minutes Anticipated Discharge Disposition: Home, Self Care Anticipated Discharge Timeframe: to be determined
[2020-07-23 21:13] LABS: CREATINE KINASE MB 11.3 ng/mL (<4.55); TROPONIN I 0.037 ng/mL
--- NOTE | 2020-07-23 21:40 | XCELERA REPORT ---
[address] [address] Transthoracic Echocardiogram Report Name: TAMIA HUI Age: 75 yrs Gender: Male : 1945 Patient Status: Inpatient Patient Location: [address] [place] [address] Study Date: 07/23/2020 10:21 AM Height: 75 in Weight: 228 lb BSA: 2.3 m2 Procedure: A complete two-dimensional transthoracic echocardiogram was performed (2D, M-mode, spectral and color flow Doppler). The study was technically difficult with many images being suboptimal in quality. Images from the parasternal window were difficult to obtain and are suboptimal in quality. Reason For Study: new onset afib Previous Evaluation: No previous studies were available. Ordering Physician: MIRIAM YU Performed By: Ketan Solano Interpretation Summary Technically limited study. The left ventricle is grossly normal size. Left ventricular systolic function is normal. The Ejection Fraction estimate is 65-70%. LV diastolic function could not be adequately assessed due to atrial fibrilation. Regional wall motion abnormalities cannot be excluded due to limited visualization. Valvulare structures not well visualized therefore cannot comment on structural abnormalities. Trace TR. No prior studies for comparison. MMode/2D Measurements & Calculations RVDd: 3.3 cm LVIDd: 4.9 cm FS: 41.4 % Ao root diam: 3.0 cm IVSd: 1.3 cm LVIDs: 2.9 cm EDV(Teich): 115.1 ml Ao root area: 7.2 cm2 LVPWd: 0.88 cm ESV(Teich): 32.2 ml LA dimension: 3.8 cm EF(Teich): 72.1 % Doppler Measurements & Calculations MV E max naseem: MV P1/2t max naseem: Ao V2 max: LV V1 max P.7 cm/sec 63.9 cm/sec 117.6 cm/sec 1.8 mmHg MV P1/2t: 65.9 msec Ao max PG: LV V1 max: MVA(P1/2t): 3.3 cm2 5.5 mmHg 68.0 cm/sec MV dec slope: 283.9 cm/sec2 MV dec time: 0.27 sec PA V2 max: MV P1/2t-pr_phl: 68.6 cm/sec 65.9 msec PA max P.9 mmHg Left Ventricle The left ventricle is grossly normal size. Left ventricular systolic function is normal. The Ejection Fraction estimate is 65-70%. LV diastolic function could not be adequately assessed due to atrial fibrilation. Regional wall motion abnormalities cannot be excluded due to limited visualization. Right Ventricle The right ventricle is grossly normal size. The right ventricular systolic function is normal. Atria The right atrium is normal. The left atrial size is normal. The interatrial septum is difficult to see, but appears to be grossly normal. Mitral Valve The mitral valve is not well visualized. There is no mitral valve stenosis. There is no mitral regurgitation noted. Aortic Valve The aortic valve is not well visualized secondary to technical limitations. There is no aortic valve stenosis. No aortic regurgitation is present. Tricuspid Valve The tricuspid valve is not well visualized secondary to technical limitations. There is no tricuspid valve prolapse. There is no tricuspid stenosis. There is a trace or physiologic amount of tricuspid regurgitation. Pulmonic Valve The pulmonic valve is not well visualized. There is no pulmonic valvular stenosis. There is no pulmonic valvular regurgitation. Great Vessels The aortic root is normal size. The inferior vena cava appeared small and collapsed with respiration (RAP 0-5 mmHg). Effusions There is no pericardial effusion. There is no pleural effusion. : MIRIAM UY Antonio
[2020-07-23] MEDS: FAMOTIDINE 20 MG TABLET PO SCH (23:02)
--- NOTE | 2020-07-23 23:21 | RADIOLOGY REPORT (SQ) ---
CLINICAL INDICATION: hypoxemic resp failure. . TECHNIQUE: Noncontrast spiral axial CT imaging was obtained of the chest with multiplanar reconstructions. This exam was performed according to our departmental dose-optimization program, which includes automated exposure control, adjustment of the mA and/or kV according to patient size and/or use of iterative reconstruction techniques. COMPARISON: None. CORRELATION: Chest radiography earlier today. FINDINGS: The heart is enlarged. No pericardial effusion. No bulky mediastinal adenopathy. Thyroid is heterogeneous The lungs demonstrate chronic changes. Dependent atelectasis/scar. Motion artifact. No dense consolidation. No effusion. No pneumothorax. Mild interstitial changes both upper lobes dependently, unknown chronicity Visualized abdominal contents are unremarkable. Possible cortical loss left kidney, not well seen Visualized bones demonstrate osteoarthritis.. IMPRESSION: Imaging is degraded by patient motion, with resultant artifact. The best possible images were obtained. Chronic parenchymal lung disease. Dependent atelectasis/scar. No dense consolidation
[2020-07-23] MEDS: NORMAL SALINE 1000 ML 1,000 ML IV PRN (23:54)
[2020-07-24 05:18] LABS: HEMATOCRIT 42.4 % (37.9-51.0); HEMOGLOBIN 14.8 g/dL (13.5-17.0); MEAN CORPUSCULAR HEMOGLOBIN 32.3 pg (27.0-33.4); MEAN CORPUSCULAR VOLUME 92 fl (80-97); PLATELET COUNT 142 10^3/uL (150-450); RED BLOOD COUNT 4.59 10^6/uL (4.35-5.55); RED CELL DISTRIBUTION WIDTH 13.3 % (11.5-14.0); WHITE BLOOD COUNT 12.2 10^3/uL (4.0-10.5)
[2020-07-24] MEDS: PANTOPRAZOLE SODIUM 40 MG TABLET.DR PO SCH (05:30)
[2020-07-24 05:40] LABS: ANION GAP 11 (5-19); BLOOD UREA NITROGEN 52 mg/dL (7-20); CALCIUM 8.2 mg/dL (8.4-10.2); CARBON DIOXIDE 20 mmol/L (22-30); CHLORIDE 107 mmol/L (98-107); GLUCOSE 151 mg/dL (75-110); POTASSIUM 3.7 mmol/L (3.6-5.0)
[2020-07-24] MEDS ORDERED: CEFTRIAXONE 1 GM/D5W RTU 1 GM/50 ML RTUPB IV SCH (06:00)
--- NOTE | 2020-07-24 08:29 | RADIOLOGY REPORT (SQ) ---
EXAM DESCRIPTION: U/S RETROPERITON (RENAL/AORTA) IMAGES COMPLETED DATE/TIME: 07/24/2020 6:42 am REASON FOR STUDY: CHETAN COMPARISON: None. TECHNIQUE: Dynamic and static grayscale images acquired of the kidneys and bladder and recorded on P ACS. Additional selected color Doppler and spectral images recorded. LIMITATIONS: None. FINDINGS: RIGHT KIDNEY: Normal size. Normal echogenicity. No solid or suspicious masses. No hydronep hrosis. No calcifications. LEFT KIDNEY: Normal size. Normal echogenicity. No solid or suspicious masses. Hydronephrosis. No ca lcifications. BLADDER: No masses. OTHER FINDINGS: No other significant finding. IMPRESSION: HYDRONEPHROSIS OF THE LEFT KIDNEY. TECHNICAL DOCUMENTATION: JOB ID: [id number] [email or web address] Rights Reserved Reading location - IP/workstation name: [email or web address]
--- NOTE | 2020-07-24 09:37 | RADIOLOGY REPORT (SQ) ---
EXAM DESCRIPTION: NM LUNG PERFUSION SCAN IMAGES COMPLETED DATE/TIME: 07/24/2020 8:29 am REASON FOR STUDY: SOB COMPARISON: Chest x-ray and chest CT dated 07/23/2020. RADIONUCLIDE AND DOSE: 5.47. Millicuries TC-99m MAA The route of agent administration: Intravenous TECHNIQUE: Eight views of the lungs acquired following injection of MAA. LIMITATIONS: None. FINDINGS: PERFUSION: There is scattered small sub segmental perfusion defects throughout both lungs. These appear to correspond with parenchymal ground-glass opacities on recent chest CT. No mismatch ed perfusion defects. OTHER: No other significant finding. IMPRESSION: SMALL SUBSEGMENTAL MATCHED PERFUSION DEFECTS. LOW PROBABILITY OF PULMONARY EMBOLISM. TECHNICAL DOCUMENTATION: JOB ID: [id number] 2010 [employer]- All Rights Reserved Reading location - IP/workstation name: [email or web address]
[2020-07-24] MEDS: DOCUSATE SODIUM 100 MG CAPSULE PO SCH ×2 (09:56→18:08)
[2020-07-24] MEDS: AZITHROMYCIN 500 MG in DEXTROSE 5%-WATER 250 ML IV SCH (09:59)
[2020-07-24] MEDS: ASPIRIN 81 MG TABLET, ENT COATED PO SCH (10:04)
[2020-07-24] MEDS: ATENOLOL 50 MG TABLET PO SCH (10:04)
[2020-07-24] MEDS: CHOLECALCIFEROL (D3) 1,000 UNIT (25 MCG) TABLET PO SCH (10:05)
[2020-07-24] MEDS: ASCORBIC ACID 500 MG TABLET PO SCH ×2 (10:06→18:14)
[2020-07-24] MEDS: ZINC SULFATE 220 MG CAPSULE PO SCH (10:07)
[2020-07-24] MEDS: DEXAMETHASONE SOD PHOS INJ 10 MG/1 ML VIAL IV SCH (10:07)
--- NOTE | 2020-07-24 16:42 | PDOC PROGRESS REPORT ---
Subjective Progress Note for:: 07/24/20 Subjective:: Patient still having some SOB but denies any chest pain, chills. His VQ scan came back as low probability for PE. Still seems a little bit confused but able to engage in conversation. Reason For Visit: ATRIAL FIBRILLATION WITH RAPID VENTRICULAR RESPONS Physical Exam Vital Signs: Temp Pulse Resp BP Pulse Ox 98.9 F 70 18 121/76 100 07/24/20 10:04 07/24/20 14:00 07/24/20 10:04 07/24/20 10:04 07/24/20 10:04 Intake & Output 07/23/20 07/24/20 07/25/20 06:59 06:59 06:59 Intake Total 12 2435 Output Total 0 1050 Balance 12 1385 Weight 103.6 kg 107.4 kg General appearance: PRESENT: no acute distress, cooperative Neck exam: ABSENT: JVD Respiratory exam: PRESENT: symmetrical, unlabored. ABSENT: accessory muscle use, retraction, stridor, tachypnea, wheezes Cardiovascular exam: PRESENT: RRR, +S1, +S2. ABSENT: tachycardia GI/Abdominal exam: PRESENT: soft. ABSENT: rebound, rigid, tenderness Neurological exam: PRESENT: alert, awake Psychiatric exam: ABSENT: agitated, anxious Focused psych exam: ABSENT: pressured speech Skin exam: ABSENT: jaundice Results Laboratory Results: 07/24/20 04:24 07/24/20 04:24 07/23/20 07/24/20 07/24/20 16:45 04:24 04:24 WBC 12.2 H RBC 4.59 Hgb 14.8 Hct 42.4 MCV 92 MCH 32.3 MCHC 35.0 RDW 13.3 Plt Count 142 L Sodium 137.9 Potassium 3.7 Chloride 107 Carbon Dioxide 20 L Anion Gap 11 BUN 52 H Creatinine 2.60 H Est GFR ( Amer) 29 L Glucose 151 H Lactic Acid 1.6 Calcium 8.2 L Magnesium 2.4 H Blood Type Antibody Screen 07/24/20 08:54 WBC RBC Hgb Hct MCV MCH MCHC RDW Plt Count Sodium Potassium Chloride Carbon Dioxide Anion Gap BUN Creatinine Est GFR ( Amer) Glucose Lactic Acid Calcium Magnesium Blood Type O POSITIVE Antibody Screen NEGATIVE 07/23/20 07/23/20 07/23/20 02:34 08:37 08:37 Creatine Kinase 2733 H CK-MB (CK-2) 16.80 H Troponin I 0.047 0.073 NT-Pro-B Natriuret Pep 07/23/20 07/23/20 07/23/20 14:40 14:40 20:26 Creatine Kinase 2719 H 2404 H CK-MB (CK-2) 13.90 H Troponin I 0.046 NT-Pro-B Natriuret Pep 07/23/20 07/23/20 20:26 20:26 Creatine Kinase CK-MB (CK-2) 11.30 H Troponin I 0.037 NT-Pro-B Natriuret Pep 904 H Impressions: Chest CT 07/23/20 00:00 IMPRESSION: Imaging is degraded by patient motion, with resultant artifact. The best possible images were obtained. Chronic parenchymal lung disease. Dependent atelectasis/scar. No dense consolidation Lung Scan-VQ NM 07/23/20 00:00 IMPRESSION: SMALL SUBSEGMENTAL MATCHED PERFUSION DEFECTS. LOW PROBABILITY OF PULMONARY EMBOLISM. Chest X-Ray 07/23/20 02:46 IMPRESSION: No acute disease. Renal Ultrasound 07/24/20 00:00 IMPRESSION: HYDRONEPHROSIS OF THE LEFT KIDNEY. Assessment and Plan - Diagnosis (1) COVID-19 virus infection Is this a current diagnosis for this admission?: Yes Plan: Confirmed positive. Day 2 of azithromycin Day 2 of dexamethasone IV We will administer convalescent plasma today For now, I will hold off on remdesivir given patient's remarkably reduced renal function. Continue vitamin and zinc supplements Continue therapeutic anticoagulation given elevated D-dimer Monitor labs and D-dimer (2) Acute kidney injury superimposed on chronic kidney disease Is this a current diagnosis for this admission?: Yes Plan: - Crea 3.8 on presentation. No recent baseline for comparison but last measured creatinine was in 2016 and was 1.59. Continue IV fluids Creatinine down to 2.6 today. Renal ultrasound does show left hydronephrosis but no obstructing mass or stones - he will need urology evaluation more likely outpatient once his COVID-19 situation has been dealt with. Continue to monitor renal function (3) Acute respiratory failure with hypoxia Is this a current diagnosis for this admission?: Yes Plan: Secondary to COVID-[address] does not really show much in terms of consolidation but does show chronic parenchymal lung disease and some atelectasis/scarring. Will administer incentive spirometer. Continue treatment for COVID-19 pneumonia/bronchitis. We will try to wean oxygen as tolerated. Currently on 3 L nasal cannula. (4) Elevated d-dimer Is this a current diagnosis for this admission?: Yes Plan: D-dimer is very high likely due to current infection. VQ scan showing low probability of PE. I will still continue therapeutic anticoagulation given COVID-19 infection and A. fib. (5) Acute metabolic encephalopathy Is this a current diagnosis for this admission?: Yes Plan: We will monitor. (6) Atrial fibrillation with rapid ventricular response Is this a current diagnosis for this admission?: Yes Plan: New onset no prior history. Undetermined if paroxysmal versus persistent. Chads vas score 3 points for age and hypertension Continue heparin drip -plan to convert to Eliquis Thyroid function test unimpressive Echo suboptimal but unremarkable (7) Elevated troponin Is this a current diagnosis for this admission?: Yes Plan: -Troponin 0.0 47 down to 0.0 37 Likely type II demand ischemia (8) Lactic acidosis Is this a current diagnosis for this admission?: Yes Plan: Resolved - Time Time Spent with patient: 15-24 minutes Anticipated Discharge Disposition: Home, Self Care Anticipated Discharge Timeframe: within 72 hours
[2020-07-24] MEDS: NORMAL SALINE 1000 ML 1,000 ML IV PRN (21:03)
[2020-07-24] MEDS: FAMOTIDINE 20 MG TABLET PO SCH (21:34)
[2020-07-24] MEDS: HEPARIN SODIUM,PORCINE/D5W 25,000 UNIT/250 ML RTUINJ IV PRN (21:37)
[2020-07-24 21:58] LABS: URINE CREATININE 164.6 mg/dL (22-328)
[2020-07-25 04:49] LABS: ANION GAP 10 (5-19); BLOOD UREA NITROGEN 46 mg/dL (7-20); CARBON DIOXIDE 20 mmol/L (22-30); CHLORIDE 109 mmol/L (98-107); GLUCOSE 160 mg/dL (75-110); POTASSIUM 4.2 mmol/L (3.6-5.0)
[2020-07-25] MEDS: PANTOPRAZOLE SODIUM 40 MG TABLET.DR PO SCH (05:03)
[2020-07-25 06:26] LABS: APPEARANCE,URINE CLEAR; BILIRUBIN,URINE NEGATIVE (NEGATIVE); COLOR,URINE YELLOW; GLUCOSE, URINE NEGATIVE (NEGATIVE); KETONES,URINE NEGATIVE (NEGATIVE); LEUKOCYTE ESTERASE,URINE NEGATIVE (NEGATIVE); NITRITE,URINE NEGATIVE (NEGATIVE); PROTEIN,URINE 30 mg/dL (NEGATIVE); URINE SPECIFIC GRAVITY 1.019; UROBILINOGEN,URINE NEGATIVE mg/dL (<2.0)
[2020-07-25] MEDS: DOCUSATE SODIUM 100 MG CAPSULE PO SCH ×2 (09:01→18:08)
[2020-07-25] MEDS: ATENOLOL 50 MG TABLET PO SCH (09:08)
[2020-07-25] MEDS: ASPIRIN 81 MG TABLET, ENT COATED PO SCH (09:08)
[2020-07-25] MEDS: ZINC SULFATE 220 MG CAPSULE PO SCH (09:08)
[2020-07-25] MEDS: ASCORBIC ACID 500 MG TABLET PO SCH ×2 (09:08→18:06)
[2020-07-25] MEDS: CHOLECALCIFEROL (D3) 1,000 UNIT (25 MCG) TABLET PO SCH (09:08)
[2020-07-25] MEDS: DEXAMETHASONE SOD PHOS INJ 10 MG/1 ML VIAL IV SCH (09:09)
[2020-07-25] MEDS: NORMAL SALINE 1000 ML 1,000 ML IV PRN ×2 (09:14→22:29)
--- NOTE | 2020-07-25 10:15 | PDOC PROGRESS REPORT ---
Subjective Progress Note for:: 07/25/20 Subjective:: Patient feels better today. States that he does not feel as short of breath today. Still feels mildly fatigued but improved. Not having any fevers. Reason For Visit: ATRIAL FIBRILLATION WITH RAPID VENTRICULAR RESPONS Physical Exam Vital Signs: Temp Pulse Resp BP Pulse Ox 98.0 F 72 18 136/93 H 97 07/25/20 07:32 07/25/20 07:18 07/25/20 07:18 07/25/20 07:18 07/25/20 07:18 Intake & Output 07/24/20 07/25/20 07/26/20 06:59 06:59 06:59 Intake Total 2435 3721 Output Total 1050 1400 Balance 1385 2321 Weight 107.4 kg 107.4 kg General appearance: PRESENT: no acute distress, cooperative Neck exam: ABSENT: JVD Respiratory exam: PRESENT: symmetrical, unlabored. ABSENT: tachypnea, wheezes Cardiovascular exam: PRESENT: RRR, +S1, +S2. ABSENT: tachycardia GI/Abdominal exam: PRESENT: soft. ABSENT: rebound, rigid, tenderness Neurological exam: PRESENT: alert, awake, oriented to person, oriented to place, oriented to time, other - Slow to talk but is responding to questions appr opriately Results Laboratory Results: 07/24/20 04:24 07/25/20 04:20 07/24/20 07/25/20 07/25/20 08:54 04:20 05:12 Sodium 138.8 Potassium 4.2 Chloride 109 H Carbon Dioxide 20 L Anion Gap 10 BUN 46 H Creatinine 1.97 H Est GFR ( Amer) 40 L Glucose 160 H Calcium 8.0 L Urine Color YELLOW Urine Appearance CLEAR Urine pH 6.0 Ur Specific [place] 1.019 Urine Protein 30 H Urine Glucose (UA) NEGATIVE Urine Ketones NEGATIVE Urine Blood MODERATE H Urine Nitrite NEGATIVE Ur Leukocyte Esterase NEGATIVE Urine WBC (Auto) 3 Urine RBC (Auto) 11 Blood Type O POSITIVE Antibody Screen NEGATIVE 07/23/20 03:36 Catheterized Urine Urine Culture - Final NO GROWTH 2 DAYS 07/23/20 07/23/20 07/23/20 02:34 08:37 08:37 Creatine Kinase 2733 H CK-MB (CK-2) 16.80 H Troponin I 0.047 0.073 NT-Pro-B Natriuret Pep 07/23/20 07/23/20 07/23/20 14:40 14:40 20:26 Creatine Kinase 2719 H 2404 H CK-MB (CK-2) 13.90 H Troponin I 0.046 NT-Pro-B Natriuret Pep 07/23/20 07/23/20 20:26 20:26 Creatine Kinase CK-MB (CK-2) 11.30 H Troponin I 0.037 NT-Pro-B Natriuret Pep 904 H Impressions: Chest CT 07/23/20 00:00 IMPRESSION: Imaging is degraded by patient motion, with resultant artifact. The best possible images were obtained. Chronic parenchymal lung disease. Dependent atelectasis/scar. No dense consolidation Lung Scan-VQ NM 07/23/20 00:00 IMPRESSION: SMALL SUBSEGMENTAL MATCHED PERFUSION DEFECTS. LOW PROBABILITY OF PULMONARY EMBOLISM. Chest X-Ray 07/23/20 02:46 IMPRESSION: No acute disease. Renal Ultrasound 07/24/20 00:00 IMPRESSION: HYDRONEPHROSIS OF THE LEFT KIDNEY. Assessment and Plan - Diagnosis (1) COVID-19 virus infection Is this a current diagnosis for this admission?: Yes Plan: Confirmed positive. Day 3 of azithromycin Day 3 of dexamethasone IV Received convalescent plasma 07/24 Now renal function is improved, will start patient on remdesivir Continue vitamin and zinc supplements Continue therapeutic anticoagulation given elevated D-dimer Monitor labs and D-dimer (2) Acute kidney injury superimposed on chronic kidney disease Is this a current diagnosis for this admission?: Yes Plan: Crea 3.8 on presentation. No recent baseline for comparison but last measured creatinine was in 2016 and was 1.59. Continue IV fluids Creatinine down to 1.9 today. Renal ultrasound does show left hydronephrosis but no obstructing mass or stones - he will need urology evaluation more likely outpatient once his COVID-19 situation has been dealt with. Continue to monitor renal function (3) Acute respiratory failure with hypoxia Is this a current diagnosis for this admission?: Yes Plan: Secondary to COVID-[address] does not really show much in terms of consolidation but does show interstitial disease, chronic parenchymal lung disease and some atelectasis/scarring. Continue incentive spirometer. Continue treatment for COVID-19 pneumonia/bronchitis. We will try to wean oxygen as tolerated. (4) Elevated d-dimer Is this a current diagnosis for this admission?: Yes Plan: D-dimer is very high likely due to current infection. VQ scan showing low probability of PE. I will still continue therapeutic anticoagulation given COVID-19 infection and A. fib. (5) Acute metabolic encephalopathy Is this a current diagnosis for this admission?: Yes Plan: Improved. Oriented and alert fully though still sluggish with speech. Suspect encephalopathy secondary to current infection. (6) Rhabdomyolysis due to COVID-19 Is this a current diagnosis for this admission?: Yes Plan: Continue IV fluids. Monitor CK (7) Atrial fibrillation with rapid ventricular response Is this a current diagnosis for this admission?: Yes Plan: New onset no prior history. Undetermined if paroxysmal versus persistent. Chads vas score 3 points for age and hypertension Continue atenolol Stop heparin drip. Start Eliquis Thyroid function test unimpressive Echo suboptimal but unremarkable (8) Elevated troponin Is this a current diagnosis for this admission?: Yes Plan: -Troponin 0.0 47 down to 0.0 37 Likely type II demand ischemia (9) Lactic acidosis Is this a current diagnosis for this admission?: Yes Plan: Resolved - Time Time Spent with patient: 25-34 minutes Anticipated Discharge Disposition: Home, Self Care Anticipated Discharge Timeframe: within 72 hours
[2020-07-25] MEDS: AZITHROMYCIN 500 MG in DEXTROSE 5%-WATER 250 ML IV SCH (10:44)
[2020-07-25] MEDS ORDERED: REMDESIVIR (EUA) 200 MG in NORMAL SALINE 250 ML IV ONE (12:00)
[2020-07-25] MEDS: APIXABAN 5 MG TABLET PO SCH ×2 (12:28→22:27)
[2020-07-25] MEDS: FAMOTIDINE 20 MG TABLET PO SCH (22:27)
[2020-07-26] MEDS: PANTOPRAZOLE SODIUM 40 MG TABLET.DR PO SCH (05:46)
[2020-07-26 06:03] LABS: ANION GAP 9 (5-19); BLOOD UREA NITROGEN 45 mg/dL (7-20); CARBON DIOXIDE 21 mmol/L (22-30); CHLORIDE 109 mmol/L (98-107); CREATINE KINASE 559 U/L (55-170); GLUCOSE 151 mg/dL (75-110); POTASSIUM 4.1 mmol/L (3.6-5.0)
[2020-07-26] MEDS: DOCUSATE SODIUM 100 MG CAPSULE PO SCH (09:14)
[2020-07-26] MEDS: APIXABAN 5 MG TABLET PO SCH (09:56)
[2020-07-26] MEDS: CHOLECALCIFEROL (D3) 1,000 UNIT (25 MCG) TABLET PO SCH (09:56)
[2020-07-26] MEDS: ATENOLOL 50 MG TABLET PO SCH (09:56)
[2020-07-26] MEDS: ZINC SULFATE 220 MG CAPSULE PO SCH (09:56)
[2020-07-26] MEDS: ASCORBIC ACID 500 MG TABLET PO SCH (09:56)
[2020-07-26] MEDS: ASPIRIN 81 MG TABLET, ENT COATED PO SCH (09:56)
[2020-07-26] MEDS: DEXAMETHASONE SOD PHOS INJ 10 MG/1 ML VIAL IV SCH (09:56)
[2020-07-26] MEDS: NORMAL SALINE 1000 ML 1,000 ML IV PRN (09:59)
[2020-07-26] MEDS ORDERED: REMDESIVIR (EUA) 100 MG in NORMAL SALINE 250 ML IV SCH (10:00)
[2020-07-26] MEDS: AZITHROMYCIN 500 MG in DEXTROSE 5%-WATER 250 ML IV SCH (11:28)
--- NOTE | 2020-07-26 11:45 | PDOC DISCHARGE SUMMARY ---
Impression - Admit/DC Date/PCP Admission Date/Primary Care Provider: 07/23/20 05:24 MARTHA BARFIELD Discharge Date: 07/26/20 - Discharge Diagnosis (1) COVID-19 virus infection Is this a current diagnosis for this admission?: Yes (2) Acute kidney injury superimposed on chronic kidney disease Is this a current diagnosis for this admission?: Yes (3) Acute respiratory failure with hypoxia Is this a current diagnosis for this admission?: Yes (4) Elevated d-dimer Is this a current diagnosis for this admission?: Yes (5) Acute metabolic encephalopathy Is this a current diagnosis for this admission?: Yes (6) Rhabdomyolysis due to COVID-19 Is this a current diagnosis for this admission?: Yes (7) Atrial fibrillation with rapid ventricular response Is this a current diagnosis for this admission?: Yes (8) Elevated troponin Is this a current diagnosis for this admission?: Yes (9) Lactic acidosis Is this a current diagnosis for this admission?: Yes - Additional Information Resuscitation Status: Full Code Discharge Diet: Cardiac Referrals: MARTHA BARFIELD MD [Primary Care Provider] - Follow up as needed CHENTE MCCRAY MD [NO LOCAL MD] - SIOMARA FAYE MD [ACTIVE STAFF] - Prescriptions: Apixaban [Eliquis 5 mg Tablet] 5 mg PO BID #60 tablet Albuterol Sulfate [Ventolin Hfa 8 gm Mdi (1 Mdi/ER Disp)] 2 puff IH Q6HP PRN #1 inhaler PRN Reason: Ascorbic Acid [Vitamin C 500 mg Tablet] 1,000 mg PO BID 10 Days #20 tablet Cholecalciferol (Vitamin D3) [Vitamin D3 1000 Unit Tablet] 2,000 unit PO DAILY #30 tablet Zinc Sulfate [Zinc-220 Capsule] 220 mg PO DAILY #15 capsule Home Medications: Atenolol [Tenormin] 25 mg PO DAILY 07/23/20 Diclofenac Sodium [Voltaren Arthritis Pain] 2 gm TOP Q6HP PRN 07/23/20 Famotidine [Pepcid] 40 mg PO QHS 07/23/20 Hydrocodone/Acetaminophen [Cory 5-325 mg Tablet] 1 tab PO BIDP PRN 07/23/20 Losartan/Hydrochlorothiazide [Losartan-Hctz 100-25 mg Tab] 1 tab PO DAILY 07/23/20 Albuterol Sulfate [Ventolin Hfa 8 gm Mdi (1 Mdi/ER Disp)] 2 puff IH Q6HP PRN #1 inhaler 07/26/20 Apixaban [Eliquis 5 mg Tablet] 5 mg PO BID #60 tablet 07/26/20 Ascorbic Acid [Vitamin C 500 mg Tablet] 1,000 mg PO BID 10 Days #20 tablet 07/26/20 Cholecalciferol (Vitamin D3) [Vitamin D3 1000 Unit Tablet] 2,000 unit PO DAILY #30 tablet 07/26/20 Zinc Sulfate [Zinc-220 Capsule] 220 mg PO DAILY #15 capsule 07/26/20 History of Present Illiness History of Present Illness: According to admitting provider: TAMIA HUI is a 75 year old male presented emergency room with a 1-week history of dyspnea. 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 He admits progressively worsening dyspnea over the last week accompanied by progressively worsening generalized weakness and worsened by exertion. He denies other associated or accompanying signs and symptoms. He denies prior similar episodes. He has not identified any additional aggravating or ameliorating factors for his dyspnea by the evening of 07/22/2020 his dyspnea had become severe and he called EMS to bring him to the hospital. In the emergency room he was found to be tachypneic, tachycardic, hypoxic on room air and was found to have a mild leukocytosis with a lactic acid of 5.7. An EKG showed atrial fibrillation/flutter and a chest x-ray is negative for acute disease. His creatinine was noted to be 3.83 precluding a CTA evaluation of the chest. He was empirically started on IV antibiotic therapy with azithromycin and Rocephin in the emergency room. He was given Decadron 10 mg IV x1 in the emergency room. He was continued on nasal cannula supplemental oxygen 2 L/min and was subsequently admitted to the hospital for further evaluation and treatment. COVID-19 testing was performed. Blood cultures are pending. Hospital Course Hospital Course: (1) COVID-19 virus infection Is this a current diagnosis for this admission?: Yes Plan: Confirmed positive. 4 days of azithromycin 4 days of dexamethasone IV Received convalescent plasma 07/24 Had 2 days of Remdesivir Continue vitamin and zinc supplements Received therapeutic anticoagulation. D-dimer has improved since admission. Ready for discharge at this point as his oxygenation has normalized and he is not having significant dyspnea (2) Acute kidney injury superimposed on chronic kidney disease Is this a current diagnosis for this admission?: Yes Plan: Crea 3.8 on presentation. No recent baseline for comparison but last measured creatinine was in 2016 and was 1.59. Received IV fluids and creatinine improved to 1.7 which is around his baseline. Renal ultrasound does show left hydronephrosis but no obstructing mass or stones -he has been recommended to follow-up with a urologist outpatient. Information given to follow-up with Dr. Chente Mccray Also given information to follow-up with a anode worker. (3) Acute respiratory failure with hypoxia Is this a current diagnosis for this admission?: Yes Plan: Secondary to COVID-[address] does not really show much in terms of consolidation but does show interstitial disease, chronic parenchymal lung disease and some atelectasis/sc arring. Received incentive spirometer and treatment for COVID-19 pneumonia/bronchitis. Hypoxia has resolved as he has been having pulse ox in the mid to high 90s on room air throughout yesterday and today (4) Elevated d-dimer Is this a current diagnosis for this admission?: Yes Plan: D-dimer is very high likely due to current infection. VQ scan showing low probability of PE. (5) Acute metabolic encephalopathy Is this a current diagnosis for this admission?: Yes Plan: Improved. Oriented and alert fully though mildly sluggish with speech. Suspect encephalopathy was secondary to current infection. (6) Rhabdomyolysis due to COVID-19 Is this a current diagnosis for this admission?: Yes Plan: Improved with IV fluids. Encourage p.o. hydration. (7) Atrial fibrillation with rapid ventricular response Is this a current diagnosis for this admission?: Yes Plan: New onset no prior history. Undetermined if paroxysmal versus persistent. Chads vas score 3 points for age and hypertension Continue atenolol and Eliquis Thyroid function test unimpressive Echo suboptimal but unremarkable (8) Elevated troponin Is this a current diagnosis for this admission?: Yes Plan: -Troponin 0.0 47 down to 0.0 37 Likely type II demand ischemia (9) Lactic acidosis Is this a current diagnosis for this admission?: Yes Plan: Resolved Physical Exam Vital Signs: Temp Pulse Resp BP Pulse Ox 97.8 F 76 16 123/87 H 99 07/26/20 08:06 07/26/20 10:44 07/26/20 10:44 07/26/20 08:06 07/26/20 10:44 Intake & Output 07/25/20 07/26/20 07/27/20 06:59 06:59 06:59 Intake Total 3721 3399 250 Output Total 1400 1300 Balance 2321 2099 250 Weight 107.4 kg 107 kg General appearance: PRESENT: no acute distress, cooperative Neck exam: ABSENT: JVD Respiratory exam: PRESENT: rales - Very mild, symmetrical, unlabored, wheezes - Minimal. ABSENT: accessory muscle use, retraction, tachypnea Cardiovascular exam: PRESENT: +S1, +S2. ABSENT: irregular rhythm, tachycardia GI/Abdominal exam: PRESENT: soft. ABSENT: rebound, rigid, tenderness Musculoskeletal exam: PRESENT: ambulatory Neurological exam: PRESENT: alert, awake, oriented to situation Focused psych exam: ABSENT: pressured speech Skin exam: ABSENT: intact, jaundice Results Laboratory Results: WBC 12.2 10^3/uL (4.0-10.5) H 07/24/20 04:24 RBC 4.59 10^6/uL (4.35-5.55) 07/24/20 04:24 Hgb 14.8 g/dL (13.5-17.0) 07/24/20 04:24 Hct 42.4 % (37.9-51.0) 07/24/20 04:24 MCV 92 fl (80-97) 07/24/20 04:24 MCH 32.3 pg (27.0-33.4) 07/24/20 04:24 MCHC 35.0 g/dL (32.0-36.0) 07/24/20 04:24 RDW 13.3 % (11.5-14.0) 07/24/20 04:24 Plt Count 142 10^3/uL (150-450) L 07/24/20 04:24 Lymph % (Auto) 5.3 % (13-45) L 07/23/20 08:37 [place] % (Auto) 4.3 % (3-13) 07/23/20 08:37 Eos % (Auto) 0.0 % (0-6) 07/23/20 08:37 Baso % (Auto) 0.4 % (0-2) 07/23/20 08:37 Absolute Neuts (auto) 7.7 10^3/uL (1.7-8.2) 07/23/20 08:37 Absolute Lymphs (auto) 0.4 10^3/uL (0.5-4.7) L 07/23/20 08:37 Absolute Monos (auto) 0.4 10^3/uL (0.1-1.4) 07/23/20 08:37 Absolute Eos (auto) 0.0 10^3/uL (0.0-0.6) 07/23/20 08:37 Absolute Basos (auto) 0.0 10^3/uL (0.0-0.2) 07/23/20 08:37 Total Counted 100 07/23/20 02:34 Seg Neutrophils % 90.0 % (42-78) H 07/23/20 08:37 Seg Neuts % (Manual) 86 % (42-78) H 07/23/20 02:34 Band Neutrophils % 1 % (3-5) L 07/23/20 02:34 Lymphocytes % (Manual) 1 % (13-45) L 07/23/20 02:34 Monocytes % (Manual) 12 % (3-13) 07/23/20 02:34 Eosinophils % (Manual) 0 % (0-6) 07/23/20 02:34 Basophils % (Manual) 0 % (0-2) 07/23/20 02:34 Abs Neuts (Manual) 9.9 10^3/uL (1.7-8.2) H 07/23/20 02:34 Abs Lymphs (Manual) 0.1 10^3/uL (0.5-4.7) L 07/23/20 02:34 Abs Monocytes (Manual) 1.4 10^3/uL (0.1-1.4) 07/23/20 02:34 Absolute Eos (Manual) 0.0 10^3/uL (0.0-0.6) 07/23/20 02:34 Abs Basophils (Manual) 0.0 10^3/uL (0.0-0.2) 07/23/20 02:34 Platelet Comment ADEQUATE 07/23/20 02:34 Poikilocytosis SLIGHT 07/23/20 02:34 Tear Drop Cells SLIGHT 07/23/20 02:34 PT 15.5 SEC (11.4-15.4) H 07/23/20 08:37 INR 1.21 07/23/20 08:37 APTT 68.2 SEC (23.5-35.8) H 07/25/20 11:45 D-Dimer 1.02 ug/mL (0.00-0.50) H 07/26/20 04:49 VBG pH 7.34 (7.30-7.42) 07/23/20 03:51 VBG pCO2 41.8 mmHg (35-63) 07/23/20 03:51 VBG HCO3 21.8 mmol/L (20-32) 07/23/20 03:51 VBG Base Excess -3.8 mmol/L 07/23/20 03:51 Sodium 138.8 mmol/L (137-145) 07/26/20 04:49 Potassium 4.1 mmol/L (3.6-5.0) 07/26/20 04:49 Chloride 109 mmol/L (98-107) H 07/26/20 04:49 Carbon Dioxide 21 mmol/L (22-30) L 07/26/20 04:49 Anion Gap 9 (5-19) 07/26/20 04:49 BUN 45 mg/dL (7-20) H 07/26/20 04:49 Creatinine 1.76 mg/dL (0.52-1.25) H 07/26/20 04:49 Est GFR ( Amer) 46 (>60) L 07/26/20 04:49 Est GFR (MDRD) Non-Af 38 (>60) L 07/26/20 04:49 Glucose 151 mg/dL (75-110) H 07/26/20 04:49 POC Glucose 126 mg/dL (70-110) H 07/26/20 08:04 Hemoglobin A1c % 6.2 % (4.7-6.0) H 07/24/20 04:24 Lactic Acid 1.6 mmol/L (0.7-2.1) 07/23/20 16:45 Calcium 8.0 mg/dL (8.4-10.2) L 07/26/20 04:49 Magnesium 2.4 mg/dL (1.6-2.3) H 07/24/20 04:24 Ferritin 1300.00 ng/mL (17.9-464.0) H 07/23/20 08:37 Total Bilirubin 1.1 mg/dL (0.2-1.3) 07/23/20 02:34 Direct Bilirubin 0.5 mg/dL (0.0-0.4) H 07/23/20 02:34 Neonat Total Bilirubin Not Reportable 07/23/20 02:34 Neonat Direct Bilirubin Not Reportable 07/23/20 02:34 Neonat Indirect Bili Not Reportable 07/23/20 02:34 AST 60 U/L (17-59) H 07/23/20 02:34 ALT 44 U/L (<50) 07/23/20 02:34 Alkaline Phosphatase 43 U/L (38-126) 07/23/20 02:34 Creatine Kinase 559 U/L (55-170) H 07/26/20 04:49 CK-MB (CK-2) 11.30 ng/mL (<4.55) H 07/23/20 20:26 Troponin I 0.037 ng/mL 07/23/20 20:26 C-Reactive Protein 61.7 mg/L (<10.0) H 07/23/20 08:37 NT-Pro-B Natriuret Pep 904 pg/mL (<450) H 07/23/20 20:26 Total Protein 7.7 g/dL (6.3-8.2) 07/23/20 02:34 Albumin 4.2 g/dL (3.5-5.0) 07/23/20 02:34 TSH 1.00 uIU/mL (0.47-4.68) 07/23/20 02:34 Free T4 1.25 ng/dL (0.78-2.19) 07/23/20 02:34 Free T3 pg/mL 2.85 pg/mL (2.77-5.27) 07/23/20 02:34 Urine Color YELLOW 07/25/20 05:12 Urine Appearance CLEAR 07/25/20 05:12 Urine pH 6.0 (5.0-9.0) 07/25/20 05:12 Ur Specific [place] 1.019 07/25/20 05:12 Urine Protein 30 mg/dL (NEGATIVE) H 07/25/20 05:12 Urine Glucose (UA) NEGATIVE mg/dL (NEGATIVE) 07/25/20 05:12 Urine Ketones NEGATIVE mg/dL (NEGATIVE) 07/25/20 05:12 Urine Blood MODERATE (NEGATIVE) H 07/25/20 05:12 Urine Nitrite NEGATIVE (NEGATIVE) 07/25/20 05:12 Urine Bilirubin NEGATIVE (NEGATIVE) 07/25/20 05:12 Urine Urobilinogen NEGATIVE mg/dL (<2.0) 07/25/20 05:12 Ur Leukocyte Esterase NEGATIVE (NEGATIVE) 07/25/20 05:12 Urine WBC (Auto) 3 /HPF 07/25/20 05:12 Urine RBC (Auto) 11 /HPF 07/25/20 05:12 U Hyaline Cast (Auto) 13 /LPF 07/23/20 03:36 Urine Bacteria (Auto) TRACE /HPF 07/23/20 03:36 Squamous Epi Cells Auto <1 /HPF 07/23/20 03:36 Urine Mucus (Auto) RARE /LPF 07/25/20 05:12 Urine Creatinine 164.6 mg/dL (22-328) 07/24/20 20:13 Urine Sodium 28 mmol/L (30-90) L 07/24/20 20:13 Urine Ascorbic Acid 20 (NEGATIVE) H 07/25/20 05:12 COVID-19 Source See comment 07/23/20 04:12 COVID-19 (LAKSHMI) DETECTED (Not Detect) A 07/23/20 04:12 Blood Type O POSITIVE 07/24/20 08:54 Antibody Screen NEGATIVE 07/24/20 08:54 07/23/20 07/23/20 07/23/20 02:34 08:37 14:40 CK-MB (CK-2) 16.80 H 13.90 H Troponin I 0.047 0.073 0.046 NT-Pro-B Natriuret Pep 07/23/20 07/23/20 20:26 20:26 CK-MB (CK-2) 11.30 H Troponin I 0.037 NT-Pro-B Natriuret Pep 904 H Impressions: Chest CT 07/23/20 00:00 IMPRESSION: Imaging is degraded by patient motion, with resultant artifact. The best possible images were obtained. Chronic parenchymal lung disease. Dependent atelectasis/scar. No dense consolidation Lung Scan-VQ NM 07/23/20 00:00 IMPRESSION: SMALL SUBSEGMENTAL MATCHED PERFUSION DEFECTS. LOW PROBABILITY OF PULMONARY EMBOLISM. Chest X-Ray 07/23/20 02:46 IMPRESSION: No acute disease. Renal Ultrasound 07/24/20 00:00 IMPRESSION: HYDRONEPHROSIS OF THE LEFT KIDNEY. Plan Time Spent: Greater than 30 Minutes Stroke Is this a Stroke Patient?: No Acute Heart Failure Is this a Heart Failure Patient?: No
[2020-07-26 14:25] VITALS: BP 126/98
== END 2020-07-26 14:45 | disposition home health service (06) | DRG 177 ==
LOC: ER 02:29 → EH 05:24 → 3N 06:52
PROVIDERS: ADMIT Emergency Medicine; ATTEND Internal Medicine
PROC: B24BZZ4 Ultrasonography of Heart with Aorta, Transesophageal (ICD-10-PCS; 2020-07-23)
PROC: XW13325 Transfusion of Convalescent Plasma (Nonautologous) into Peripheral Vein, Percutaneous Approach, New Technology Group 5 (ICD-10-PCS; principal; 2020-07-24)
PROC: XW033E5 Introduction of Remdesivir Anti-infective into Peripheral Vein, Percutaneous Approach, New Technology Group 5 (ICD-10-PCS; 2020-07-25)
DX: U07.1 COVID-19 (principal); J96.01 Acute respiratory failure with hypoxia; G93.41 Metabolic encephalopathy; N17.9 Acute kidney failure, unspecified; M62.82 Rhabdomyolysis; E87.2 Acidosis; N18.30 Chronic kidney disease, stage 3 unspecified; I48.91 Unspecified atrial fibrillation; I12.9 Hypertensive chronic kidney disease with stage 1 through stage 4 chronic kidney disease, or unspecified chronic kidney disease; R73.9 Hyperglycemia, unspecified; Z79.899 Other long term (current) drug therapy; Z87.891 Personal history of nicotine dependence
CPT/HCPCS: 36415; 36430; 71045; 71250; 76770; 78580; 80048; 80053; 81001; 82550; 82553; 82570; 82728; 82803; 82962; 83036; 83605; 83735; 83880; 84300; 84439; 84443; 84481; 84484; 85025; 85027; 85379; 85610; 85730; 86140; 86850; 86900; 86901; 87040; 87077; 87086; 87635; 93005; 93010; 93306; 94799; 96361; 96365; 96375; 99285; A9540; C9803; J0456; J0696; J1100; J1644; J2543; J3490; J7030; J7050; J7060; J7120; Q9969